=== PATIENT | male | born 1975 | race Caucasian/White ===

== ENCOUNTER → 2019-08-24 05:39 | Day surgery (SDC) | payer BC ==
--- NOTE | 2019-08-17 09:54 | HP ---
HISTORY AND PHYSICAL: DATE OF SURGERY: 08/24/19 DATE OF OFFICE VISIT: 08/13/19 SURGEON: Catalina Ordonez MD * (DICTATED BY THELMA BALDERAS) PROCEDURE: Left knee arthroscopy with partial meniscectomy, possible chondroplasty, possible synovectomy, and possible plica excision. CHIEF COMPLAINT: Left knee pain. HISTORY OF PRESENT ILLNESS: Mr. Diaz is a 44-year-old gentleman with complaints of left knee pain. He has failed conservative treatment and elected to proceed with a left knee arthroscopy. PAST MEDICAL HISTORY: Psoriatic arthritis. PAST SURGICAL HISTORY: A mole removal and ear tubes. CURRENT MEDICATIONS: Zantac as needed. ALLERGIES: No known drug allergies. FAMILY HISTORY: Coronary artery disease, cancer, and thyroid disease. SOCIAL HISTORY: He is a 44-year-old gentleman who lives with his . He does not smoke or use drugs. REVIEW OF SYSTEMS: A complete 14-point review of systems was reviewed with the patient, all negative and noncontributory. He denies history of DVT, PE, hepatitis, HIV, or anesthesia problems. PHYSICAL EXAMINATION GENERAL: He is well-nourished, well-developed, in no acute distress. VITAL SIGNS: He stands 35 inches tall, weighs 182 pounds. His blood pressure is 128/88, his heart rate is 60. HEENT: Normocephalic and atraumatic. NECK: Supple. No palpable lymph nodes. PULMONARY: The lungs are clear to auscultation bilaterally. CARDIO: Regular rate and rhythm. Strong S1 and S2. ABDOMEN: Soft, nontender, and nondistended. NEUROLOGIC: He is alert and oriented x3. MUSCULOSKELETAL: Left lower extremity, the skin is intact. There is no open wounds or abrasions. There is a moderate effusion at the left knee joint. He has some tenderness over the medial joint line. Positive Seferino's. Positive Apley's. Negative Kathleen's. He walks with a slightly antalgic type gait favoring the left knee. He is able to dorsiflex and plantarflex. He has a 2+ dorsalis pedis pulse and intact sensation. ASSESSMENT AND PLAN: Mr. Diaz is a 44-year-old gentleman with complaints of left knee pain and MRI confirms a meniscus tear. He has elected to proceed with a left knee arthroscopy with partial meniscectomy, possible chondroplasty, possible synovectomy, and possible plica excision. Surgery scheduled for 08/24/[address] Ordonez discussed the risks and benefits of the surgery at today's visit and all of his questions were answered. He will follow up with Dr. Ordonez 2 weeks after the surgery. THELMA BALDERAS [id number]/[facility] #: [id number] RIAN
[~2019-08-24 05:39] MED LIST: Buffered Lidocaine 1% SYRIN* 1 ML/SYRINGE INTRADERM ONE; Dexamethasone IV* 4 MG/ML 1 ML (4 MG) ONE; DiMENhydriNATE IV* 50 MG/ML VIAL IV PUSH PRN; EPHEDrine (Pressors)* 50 MG/ML VIAL ONE; EPINEPHRINE 1 MG/ML 1 ML VIAL ONE; Ketorolac INJ* 30 MG/ML 1 ML VIAL ONE; Lactated Ringers 1000 ML Bag* 1,000 ML IV SCH; Lidocaine 2% PF * 5 ML VIAL ONE; Metoclopramide IV* 5 MG/ML 2 ML VIAL ONE; Midazolam* 1 MG/ML 2 ML VIAL (2 MG) ONE; Naloxone* 0.4 MG/ML 1 ML VIAL IV PRN; Ondansetron INJ* 2 MG/ML VIAL ONE; Propofol* 10 MG/ML 20 ML BTL ONE; ROPIVACAINE 5 MG/ML 30 ML BTL (0.5%) ONE; Succinylcholine* 20 MG/ML 10 ML VIAL ONE; ceFAZolin 2 GM PREMIX in ORs 2 GM/50 ML BAG ONE; fentaNYL* 50 MCG/ML 2 ML VIAL (100 MCG VIAL) IV PRN; fentaNYL* 50 MCG/ML 2 ML VIAL (100 MCG VIAL) ONE; methylPREDNISolone ACETATE 80* 80 MG/ML 1 ML VIAL ONE; oxyCODONE TAB* 5 MG TAB ONE; oxyCODONE TAB* 5 MG TAB PO PRN
[2019-08-24 09:47] VITALS: BP 141/97
--- NOTE | 2019-08-25 08:23 | OP ---
DATE OF OPERATION: 08/24/19 - [facility] DATE OF : 71. ATTENDING SURGEON: Catalina Ordonez MD. MECHANICAL ENGINEERING LECTURER: THELMA Jiménez. Mr. Mahoney did help throughout the procedure with preparation of the leg, wound retraction, manipulation of the knee, and wound closure. ANESTHESIOLOGIST: Dr. Patrick. ANESTHESIA: General. PRE-OP DIAGNOSIS: Left knee medial meniscal tear. POST-OP DIAGNOSIS: Left knee medial meniscal tear, medial plica. OPERATIVE PROCEDURE: Left knee arthroscopy with partial medial meniscectomy and medial plica excision. COMPLICATIONS: None. SPECIMEN: None. BRIEF HISTORY/INDICATION: Mr. Diaz is a 44-year-old gentleman with three months of acute left knee pain, swelling and mechanical symptoms. MRI confirmed a medial meniscal tear. He failed conservative treatment. He had a continued pain and decreased quality of life, he elected to undergo a left knee arthroscopy with partial medial meniscectomy. Informed consent was obtained from the patient. He understood the risks of surgery included, but were not limited to, bleeding, infection, damage to nearby structures, continued pain, need for further surgery, retear of the meniscus, progression of arthritis, stroke, heart attack, blood clot, and . He wished to proceed. INTRAOPERATIVE FINDINGS: Intraoperatively, the patient is noted to have some grade 2 and 3 Outerbridge cartilage changes in the medial patellofemoral compartment. This is mild to moderate arthritic changes. He had a parrot-beak type complex tear involving the posterior one-third of the medial meniscus in the red-white and red- red zone. He had a significant medial plica, which did impinge along the medial femoral condyle with range of motion. DESCRIPTION OF PROCEDURE: Mr. Diaz was identified in the preanesthesia unit. His left lower extremity was marked as the correct operative side. Informed consent was signed and placed in the chart. The patient was taken to the operating room and placed under anesthesia without difficulty. Left lower extremity was prepped and draped in the usual sterile fashion. Preop time-out was made to correctly identify the patient side and site. Appropriate perioperative antibiotics were given within 1 hour of incision. A 0.5 cm anterolateral portal incision was made using a 10-blade and carried down through the capsule. A trocar was introduced. Once the light and water sources were turned on, there was immediate visualization of the suprapatellar pouch. A tour of the knee joint was performed. Suprapatellar pouch had no obvious abnormalities. Patellofemoral compartment had some mild degenerative changes. These were grade 3 or 4 Outerbridge cartilage changes. No exposed subchondral bone. There was a large medial plica, which did impinge on the medial femoral condyle with range of motion. The medial gutter had no loose body. The medial compartment showed minimal degenerative changes involving the medial femoral condyle. These were grade 2 and 3 Outerbridge cartilage changes. There was no large area of exposed subchondral bone. There was a visible anteriorly displaced medial meniscus tear, which did have parrot-beak type component. ACL and PCL appeared to be intact. The knee was placed in the [id number] position. The lateral meniscus had a minimal fraying along the inner edge, but no significant tear. Lateral compartment cartilage had no significant degenerative changes. Lateral gutter had no loose body or plica. Under direct visualization, a medial portal incision was made with a 10-blade. A probe was introduced. A second tour of the knee joint was performed. No additional findings were noted. Shaver and radiofrequency ablation wand were introduced and the medial plica was carefully excised. There was no further impingement with range of motion. A straight biter and shaver were used to perform partial medial meniscectomy. This is a complex parrot-beak type tear involving the posterior one-third of the medial meniscus. This was in the red-white and red-red zone. The meniscal tear was completely excised until there was a smooth border of the medial meniscus. Further probing of the medial meniscus showed no additional tears. The knee was copiously irrigated with sterile saline. All instruments were removed. The incisions were closed using 3-0 nylon suture. Sterile Xeroform, 4x4s, and Webril were used to cover the incisions. Pankaj wrap and cold pack were placed over this. The patient's anesthesia was reversed without difficulty. He was taken to the PACU in stable condition. Intended weightbearing will be weightbearing as tolerated. Intended DVT prophylaxis will be aspirin. He will follow up in two weeks' time for a suture removal. [id number]/[facility] #: [id number] RIAN
== END | disposition home or self-care (01) ==
LOC: OR 05:39
PROVIDERS: ATTEND Orthopaedic Surgery Adult Reconstructive Orthopaedic Surgery
DX: S83.242A Other tear of medial meniscus, current injury, left knee, initial encounter (principal); M67.52 Plica syndrome, left knee; X58.XXXA Exposure to other specified factors, initial encounter; Y92.9 Unspecified place or not applicable; L40.50 Arthropathic psoriasis, unspecified
CPT/HCPCS: A9270-GY; J0330; J0690; J1040; J1100; J1885; J2250; J2405; J2704; J2765; J2795; J3010